=== PATIENT | female | born 1960 | race Caucasian/White ===

== ENCOUNTER 2016-07-08 11:28 | Emergency (ER) | payer OTHER | END 2016-07-08 13:57 | disposition home or self-care (01) | LOC: FER 11:28 | DX: S92.322A Displaced fracture of second metatarsal bone, left foot, initial encounter for closed fracture (principal); F17.210 Nicotine dependence, cigarettes, uncomplicated; W51.XXXA Accidental striking against or bumped into by another person, initial encounter; Y92.009 Unspecified place in unspecified non-institutional (private) residence as the place of occurrence of the external cause | CPT/HCPCS: 73630; 99283 ==

== ENCOUNTER 2020-10-05 17:21 | Emergency (ER) | payer OTHER ==
[2020-10-05 18:31] LABS: BASOPHIL 0.3 % (0-2); EOSINOPHIL 0.2 % (0-5); HCT 42.5 % (37.0-47.0); HGB 14.6 g/dl (12.5-16.0); LYMPHOCYTE 9.8 % (15-48); MCH 32.8 pg (25.0-31.0); MCHC 34.4 g/dL (32.0-36.0); MCV 95.5 fL (78.0-100.0); MONOCYTE 9.1 % (0-12); MPV 9.7 fL (6.0-9.5); NEUTROPHIL 80.1 % (41-80); NRBC 0; PLT 297 K/uL (150-400); RBC 4.45 M/uL (4.20-5.40); RDW 12.3 % (11.5-14.0); WBC 12.5 K/uL (4.0-10.5)
[2020-10-05 19:01] LABS: PRO-BNP 234 pg/mL (<125)
[2020-10-05 19:03] LABS: ALBUMIN 3.6 g/dL (3.4-5.0); BILIRUBIN - TOTAL 0.5 mg/dL (0.2-1.0); BUN/CREAT RATIO (CALC) 8.3 RATIO; CREATININE 0.6 mg/dL (0.51-0.95); GLOBULIN (CALCULATION) 4.3 g/dL; MAGNESIUM 1.9 mg/dL (1.8-2.4); TOTAL PROTEIN 7.9 g/dL (6.4-8.2)
[2020-10-05 19:26] LABS: LACTIC ACID 1.1 mmol/L (0.4-1.9)
[2020-10-05 20:26] LABS: IRON % SATURATION 9.7 %SAT (20-50)
[2020-10-05 20:42] LABS: BILIRUBIN NEGATIVE (NEGATIVE); BLOOD NEGATIVE Ery/uL (NEGATIVE); CLARITY CLEAR (CLEAR); COLOR YELLOW (YELLOW); GLUCOSE (U) NORMAL (NORMAL); LEUKOCYTES NEGATIVE Leu/uL (NEGATIVE); NITRITE NEGATIVE (NEGATIVE); PROTEIN NEGATIVE (NEGATIVE); SPECIFIC GRAVITY <=1.005 (1.001-1.030); UROBILINOGEN 0.2 mg/dL (0.2-1.0)
[2020-10-05] MEDS ORDERED: VENTOLIN HFA18 GM INH (21:31)
[2020-10-05] MEDS ORDERED: VIBRAMYCIN100 MG PO (21:31)
[2020-10-05] MEDS ORDERED: PREDNISONE20 MG PO (21:31)
== END 2020-10-05 21:50 | disposition home or self-care (01) ==
LOC: FER 17:21
PROVIDERS: Emergency Medicine
DX: U07.1 COVID-19 (principal); J44.9 Chronic obstructive pulmonary disease, unspecified; F17.210 Nicotine dependence, cigarettes, uncomplicated; Z88.6 Allergy status to analgesic agent
CPT/HCPCS: 36415; 36600; 71250; 80053; 81003; 82728; 82803; 83540; 83550; 83605; 83615; 83735; 83880; 84145; 84484; 85025; 86140; 87040; 93005; C9399; J1100; J7030; J7050; M0243; Q0244; U0002

== ENCOUNTER → 2021-07-23 | Day surgery (SDC) | payer OTHER ==
[~2021-07-23] VITALS: Ht 160 cm; Wt 48.1 kg
[~2021-07-23] MED LIST: PREDNISONE20 MG PO; VENTOLIN HFA18 GM INH; VIBRAMYCIN100 MG PO
[2021-07-23 11:57] LABS: HCT 45.7 % (37.0-47.0); HGB 15.7 g/dl (12.5-16.0); MCH 33.1 pg (25.0-31.0); MCHC 34.4 g/dL (32.0-36.0); MCV 96.4 fL (78.0-100.0); MPV 9.6 fL (6.0-9.5); RBC 4.74 M/uL (4.20-5.40); RDW 13.2 % (11.5-14.0); WBC 8.9 K/uL (4.0-10.5)
[2021-07-23 12:53] LABS: BILIRUBIN - TOTAL 0.7 mg/dL (0.2-1.0); BUN/CREAT RATIO (CALC) 14.3 RATIO; CREATININE 0.56 mg/dL (0.51-0.95); GLOBULIN (CALCULATION) 3.3 g/dL; TOTAL PROTEIN 7.3 g/dL (6.4-8.2)
== END | disposition home or self-care (01) ==
LOC: FAS 11:01
PROVIDERS: Orthopaedic Surgery
DX: M75.112 Incomplete rotator cuff tear or rupture of left shoulder, not specified as traumatic (principal); M75.52 Bursitis of left shoulder; M75.42 Impingement syndrome of left shoulder; M19.012 Primary osteoarthritis, left shoulder; S46.212A Strain of muscle, fascia and tendon of other parts of biceps, left arm, initial encounter; J44.9 Chronic obstructive pulmonary disease, unspecified; F17.200 Nicotine dependence, unspecified, uncomplicated; Z88.6 Allergy status to analgesic agent; X58.XXXA Exposure to other specified factors, initial encounter
CPT/HCPCS: 36415; 71045; 80053; 93005; C1713; J0171; J1100; J1170; J1885; J2250; J2370; J2405; J2704; J2795; J7120